=== PATIENT | male | born 1950 | race Caucasian/White ===

== ENCOUNTER → 2021-03-20 10:36 | Outpatient (CLI) | payer MEDICARE, OTHER, SELFPAY ==
[2021-03-20 19:45] LABS: Alanine Aminotransferase 58 IU/L (<50); Albumin 4.5 g/dL (3.5-5.0); Albumin Globulin Ratio 1.4 (1.0-2.8); Alkaline Phosphatase 120 U/L (38-126); Aspartate Aminotransferase 77 IU/L (17-59); BUN Creatinine Ratio 13.8 (6-22); Bilirubin Total 1.1 mg/dL (0.2-1.3); Blood Urea Nitrogen 12 mg/dL (9-20); Calcium 9.7 mg/dL (8.4-10.2); Carbon Dioxide 27 mmol/L (22-32); Chloride 103 mmol/L (98-107); Cholesterol 216 mg/dL (140-199); Estimated Glomerular Filt Rate > 60.0 mL/min (>60); Globulin 3.2 g/dL (1.7-4.1); Glucose 103 mg/dL (80-110); HDL Cholesterol 69 mg/dL (40-60); HEMOLYSIS < 15 (0-50); LDL Cholesterol Calculated 120 mg/dL (<100); Potassium 4.4 mmol/L (3.4-5.1); Sodium 139 mmol/L (137-145); Total Protein 7.7 g/dL (6.3-8.2); Triglycerides 133 mg/dL (35-150)
== END ==
PROVIDERS: Family Provider Family Medicine; PCP Physician Assistant; Visit Provider Physician Assistant
DX: F10.20 Alcohol dependence, uncomplicated (principal); Z12.5 Encounter for screening for malignant neoplasm of prostate; E78.5 Hyperlipidemia, unspecified; I10 Essential (primary) hypertension
CPT/HCPCS: 80053; 80061; G0103

== ENCOUNTER → 2021-07-09 13:47 | Outpatient (CLI) | payer MEDICARE, OTHER, SELFPAY ==
[2021-07-09 19:16] LABS: Add Manual Diff / Slide Review NO; Basophils Absolute Auto 0 /uL (0-100); Basophils Percent Auto 0.6 % (0-2); Eosinophils Absolute Auto 100 /uL (0-450); Eosinophils Percent Auto 0.9 % (2-4); Hematocrit 41.9 % (41-53); Hemoglobin 14.9 g/dL (13.5-17.5); Lymphocytes Absolute Auto 1500 /uL (1100-4500); Lymphocytes Percent Auto 18.9 % (25-40); Mean Corpuscular HGB Conc 35.5 % (30-36); Mean Corpuscular Hemoglobin 34.9 PG (26-34); Mean Corpuscular Volume 98.1 fL (80-100); Monocytes Absolute Auto 1100 /uL (0-900); Monocytes Percent Auto 13.3 % (3-14); Neutrophils Absolute Auto 5300 /uL (1500-7000); Neutrophils Percent Auto 66.3 % (50-75); Platelet Count 239 X10^3/uL (150-400); Red Blood Cell Count 4.27 X10^6/uL (4.5-5.9); Red Cell Distribution Width 12.5 % (11.6-14.8)
[2021-07-09 19:28] LABS: Erythrocyte Sedimentation Rate 46 MM/HR (0-15)
== END ==
PROVIDERS: Family Provider Family Medicine; PCP Physician Assistant; Visit Provider Family Medicine
DX: M25.561 Pain in right knee (principal)
CPT/HCPCS: 85025; 85651

== ENCOUNTER → 2021-08-29 11:38 | Outpatient (CLI) | payer MEDICARE, OTHER, SELFPAY ==
[2021-08-29 18:47] LABS: Alanine Aminotransferase 36 IU/L (<50); Albumin 4.5 g/dL (3.5-5.0); Albumin Globulin Ratio 1.4 (1.0-2.8); Alkaline Phosphatase 115 U/L (38-126); Aspartate Aminotransferase 49 IU/L (17-59); Bilirubin Total 0.8 mg/dL (0.2-1.3); Bilirubin Unconjugated 0.8 mg/dL (0.0-1.1); Globulin 3.3 g/dL (1.7-4.1); HEMOLYSIS < 15 (0-50); Total Protein 7.8 g/dL (6.3-8.2); Uric Acid 7.1 mg/dL (3.5-8.5)
[2021-08-29 18:59] LABS: Erythrocyte Sedimentation Rate 11 MM/HR (0-15)
[2021-08-30 16:54] LABS: Hep C Virus Ab w/Reflex Quant NEGATIVE s/c (NEGATIVE)
== END ==
PROVIDERS: Family Provider Family Medicine; PCP Physician Assistant; Visit Provider Family Medicine
DX: E78.5 Hyperlipidemia, unspecified (principal); F10.20 Alcohol dependence, uncomplicated; I10 Essential (primary) hypertension; K21.00 Gastro-esophageal reflux disease with esophagitis, without bleeding; K58.9 Irritable bowel syndrome, unspecified; M10.9 Gout, unspecified; R74.8 Abnormal levels of other serum enzymes
CPT/HCPCS: 80076; 84550; 85651; 86803

== ENCOUNTER 2022-02-13 08:29 | Emergency (ER) | payer MEDICARE, OTHER, SELFPAY ==
[2022-02-13] VITALS (9 sets, daily range): BP systolic 117–154; BP diastolic 68–94; PULSE 65–82; RESP 18–20; TEMP 36.9; O2SAT 95–98; BMI 19.8
[2022-02-13 09:25] LABS: Alanine Aminotransferase 15 IU/L (<50); Albumin 4.1 g/dL (3.5-5.0); Albumin Globulin Ratio 1.1 (1.0-2.8); Alkaline Phosphatase 69 U/L (38-126); Aspartate Aminotransferase 32 IU/L (17-59); BUN Creatinine Ratio 26.7 (6-22); Bilirubin Total 1.6 mg/dL (0.2-1.3); Blood Urea Nitrogen 20 mg/dL (9-20); Calcium 9.3 mg/dL (8.4-10.2); Carbon Dioxide 32 mmol/L (22-32); Chloride 97 mmol/L (98-107); Estimated Glomerular Filt Rate > 60 mL/min (>60); Globulin 3.9 g/dL (1.7-4.1); Glucose 97 mg/dL (80-110); Lactate (Lactic Acid) 1.4 mmol/L (0.7-2.1); Lipase 82 U/L (23-300); Potassium 4.6 mmol/L (3.4-5.1); Sodium 139 mmol/L (137-145)
[2022-02-13 09:26] LABS: HEMOLYSIS 52 (0-50)
[2022-02-13] MEDS: SODIUM CHLORIDE 0.9% 1,000 ML 1000 ML IV (09:30)
[2022-02-13 09:31] LABS: Add Manual Diff / Slide Review NO; Basophils Absolute Auto 0 /uL (0-100); Basophils Percent Auto 0.6 % (0-2); Eosinophils Absolute Auto 100 /uL (0-450); Eosinophils Percent Auto 0.8 % (2-4); Hematocrit 44.7 % (41-53); Hemoglobin 15.2 g/dL (13.5-17.5); Lymphocytes Absolute Auto 1500 /uL (1100-4500); Lymphocytes Percent Auto 21.4 % (25-40); Mean Corpuscular HGB Conc 34.1 % (30-36); Mean Corpuscular Hemoglobin 32.7 PG (26-34); Mean Corpuscular Volume 95.9 fL (80-100); Monocytes Absolute Auto 700 /uL (0-900); Monocytes Percent Auto 9.3 % (3-14); Neutrophils Absolute Auto 4800 /uL (1500-7000); Neutrophils Percent Auto 67.9 % (50-75); Platelet Count 257 X10^3/uL (150-400); Red Blood Cell Count 4.66 X10^6/uL (4.5-5.9); Red Cell Distribution Width 13.2 % (11.6-14.8); White Blood Cell Count 7.1 X10^3/uL (4.5-11.0)
--- NOTE | 2022-02-13 09:48 | ED_ITS ---
HPI - Weakness General Chief complaint: Upper Respiratory Symptoms Stated complaint: throat pain, difficulty swallowing Time Seen by Provider: 02/13/22 08:50 Source: patient Mode of arrival: Family Vehicle History of Present Illness HPI Narrative: Patient is a 71-year-old male history of hypertension and gout presenting today with some difficulty swallowing and raspy voice. He says it has been ongoing for the last few months worse over the last few weeks. No changes today. He says that he has had significant weight loss. He says it hurts to swallow he can swallow liquids on not food as much but sometimes gets things down. He has had significant weight loss. He denies any chest pain shortness of breath abdominal pain nausea vomiting fever or chills. He says about 10 or 12 years ago he had benign polyps removed from his throat. According to records patient has had these symptoms since 11/14/2021 he has been seen by his PCP including on 01/30/2022 he has been referred to ENT however he has not yet contacted them. Orders for imaging were placed however not yet done. Former smoker has not smoked for 10 years does drink alcohol regularly. Currently denies any withdrawal symptoms not having any tremors. Related Data Previous Rx's Medication Instructions Recorded allopurinol 100 mg tablet See Rx Instructions PO DAILY #28 08/29/21 tabs allopurinol 300 mg tablet See Rx Instructions PO DAILY gout 08/29/21 #90 tabs colchicine 0.6 mg tablet See Rx Instructions PO DAILY #90 08/30/21 tabs metoprolol succinate 50 mg See Rx Instructions .Route 11/15/21 tablet,extended release 24 hr .COMPLEX #45 tabs oxycodone 5 mg tablet 5 mg PO TID PRN pain #30 tabs 01/30/22 Allergies Allergy/AdvReac Type Severity Reaction Status Date / Time No Known Drug Allergies Allergy Verified 11/14/21 15:05 Review of Systems Review of Systems Narrative: GENERAL: Denies chills, fatigue, malaise, fever, sweats, travel HEENT: See HPI RESPIRATORY: Denies dyspnea, cough, wheezing, hemoptysis, sputum. CARDIOVASCULAR: Denies chest pain, palpitations, orthopnea, edema GASTROINTESTINAL: Denies nausea, vomiting, abdominal pain, diarrhea, constipation, melena. : Denies dysuria, frequency, incontinence, hematuria, urinary retention, flank pain. MUSCULOSKELETAL: Denies weakness, joint pain, or bony pain SKIN: No rash, no erythema, no pruritus NEUROLOGIC: Denies weakness, dizziness, headache, numbness, change in speech, confusion PSYCHIATRIC: No concerning psychosocial issues. 12 point review of systems is negative except for those stated above and HPI Patient History Medical History Family history of coronary artery disease in father Screening for colon cancer Screening for prostate cancer Social History Smoking Status: Former smoker Smoking Status: Former smoker tobacco type: cigarettes alcohol intake frequency: 3 or more drinks per day Alcohol type: hard liquor Substance Use Type: does not use Exam Initial Vital Signs Initial Vital Signs: Vital Signs Temperature 98.5 F 02/13/22 08:51 Pulse Rate 82 02/13/22 08:51 Respiratory Rate 18 02/13/22 08:51 Blood Pressure 122/94 H 02/13/22 08:51 Pulse Oximetry 98 02/13/22 08:51 Oxygen Delivery Method 02/13/22 08:51 GENERAL: Alert and 71-year-old male and in no acute distress. HEENT: Head atraumatic,EOMI, pupils reactive, face symmetric, moist mucous membranes PHARYNX: No uvula swelling deviation airway patent CARDIOVASCULAR: Regular rate and rhythm without murmurs, rubs or gallops. RESPIRATORY: Breath sounds equal bilaterally, no wheezes rales or rhonchi. ABDOMEN: Soft, nontender. Normoactive bowel sounds all 4 quadrants. No guardi ng or rebound. EXTREMITIES: Normal range of motion, no clubbing or edema. Neurovascularly intact NEUROLOGICAL: Alert and oriented x4.Normal gait and speech. SKIN: Warm, dry, no laceration, no petechiae, no rashes or lesions. Course Orders Ordered: Discontinued Medications Sodium Chloride (Normal Saline 0.9%) 1,000 mls @ 1,000 mls/hr IV BOLUS ONE Stop: 02/13/22 10:11 Last Infusion: 02/13/22 10:37 Dose: 0 mls/hr Documented By: Admin: 02/13/22 09:30 Dose: 1,000 mls/hr Documented By: MIK Vital Signs Vital signs: Vital Signs - 8 hr 02/13/22 11:30 02/13/22 11:30 02/13/22 12:00 Pulse Rate 65 Respiratory Rate 20 Blood Pressure 135/74 137/76 Pulse Oximetry 98 02/13/22 12:00 Pulse Rate 71 Respiratory Rate Blood Pressure Pulse Oximetry 97 MDM - Weakness Lab Data Result diagrams: 02/13/22 09:07 02/13/22 09:07 Labs: Lab Results 02/13/22 02/13/22 02/13/22 Range/Units 09:07 09:07 09:07 WBC 7.1 (4.5-11.0) X10^3/uL RBC 4.66 (4.5-5.9) X10^6/uL Hgb 15.2 (13.5-17.5) g/dL Hct 44.7 (41-53) % MCV 95.9 (80-100) fL MCH 32.7 (26-34) PG MCHC 34.1 (30-36) % RDW 13.2 (11.6-14.8) % Plt Count 257 (150-400) X10^3/uL Neut % (Auto) 67.9 (50-75) % Lymph % (Auto) 21.4 L (25-40) % [place] % (Auto) 9.3 (3-14) % Eos % (Auto) 0.8 L (2-4) % Baso % (Auto) 0.6 (0-2) % Neut # (Auto) 4800 (0743-6912) /uL Lymph # (Auto) 1500 (1695-0242) /uL [place] # (Auto) 700 (0-900) /uL Eos # (Auto) 100 (0-450) /uL Baso # (Auto) 0 (0-100) /uL Sodium 139 (137-145) mmol/L Potassium 4.6 (3.4-5.1) mmol/L Chloride 97 L (98-107) mmol/L Carbon Dioxide 32 (22-32) mmol/L BUN 20 (9-20) mg/dL Creatinine 0.75 (0.66-1.25) mg/dL Estimated GFR > 60 (>60) mL/min BUN/Creatinine Ratio 26.7 H (6-22) Glucose 97 (80-110) mg/dL Lactate 1.4 (0.7-2.1) mmol/L Calcium 9.3 (8.4-10.2) mg/dL Total Bilirubin 1.6 H (0.2-1.3) mg/dL AST 32 (17-59) IU/L ALT 15 (<50) IU/L Alkaline Phosphatase 69 (38-126) U/L Total Protein 8.0 (6.3-8.2) g/dL Albumin 4.1 (3.5-5.0) g/dL Globulin 3.9 (1.7-4.1) g/dL Albumin/Globulin Ratio 1.1 (1.0-2.8) Lipase 82 (23-300) U/L SARS-CoV-2 (PCR) (Negative) 02/13/22 Range/Units 09:27 WBC (4.5-11.0) X10^3/uL RBC (4.5-5.9) X10^6/uL Hgb (13.5-17.5) g/dL Hct (41-53) % MCV (80-100) fL MCH (26-34) PG MCHC (30-36) % RDW (11.6-14.8) % Plt Count (150-400) X10^3/uL Neut % (Auto) (50-75) % Lymph % (Auto) (25-40) % [place] % (Auto) (3-14) % Eos % (Auto) (2-4) % Baso % (Auto) (0-2) % Neut # (Auto) (8745-5379) /uL Lymph # (Auto) (0572-0212) /uL [place] # (Auto) (0-900) /uL Eos # (Auto) (0-450) /uL Baso # (Auto) (0-100) /uL Sodium (137-145) mmol/L Potassium (3.4-5.1) mmol/L Chloride (98-107) mmol/L Carbon Dioxide (22-32) mmol/L BUN (9-20) mg/dL Creatinine (0.66-1.25) mg/dL Estimated GFR (>60) mL/min BUN/Creatinine Ratio (6-22) Glucose (80-110) mg/dL Lactate (0.7-2.1) mmol/L Calcium (8.4-10.2) mg/dL Total Bilirubin (0.2-1.3) mg/dL AST (17-59) IU/L ALT (<50) IU/L Alkaline Phosphatase (38-126) U/L Total Protein (6.3-8.2) g/dL Albumin (3.5-5.0) g/dL Globulin (1.7-4.1) g/dL Albumin/Globulin Ratio (1.0-2.8) Lipase (23-300) U/L SARS-CoV-2 (PCR) Positive H (Negative) Imaging Data Ct soft tissue : Radiologist Impression: ?Mikel Yeager MR#: [id number] : 1950 Acct:[id number] Age/Sex: 71 / M Date of Service: 02/13/22 Loc: ED Accession Number: [id number] ?? Procedure: CT soft tissue neck w con Ordering Provider: Quynh Min D.O. PROCEDURE:? CT SOFT TISSUE NECK W CON ? INDICATIONS:? can't swallow for weeks difficulty talking ? TECHNIQUE:? After the administration of intravenous contrast, 3.0 mm axial sections acquired from the sella to the aortic arch.? 3 mm thick coronal and sagittal reformats were generated.? For radiation dose reduction, the following was used:? automated exposure control.? ? COMPARISON:? None. ? FINDINGS: ? Skull Base: The visualized intracranial contents, skull, and orbits are unremarkable.? Visualized paranasal sinuses are clear. ? Pharynx and Larynx:? There is irregular thickening and mass effect associated with the right aryepiglottic fold measuring and 2.4 x 1.1 x 4.1 cm overall.? Mass follows the mucosal surface predominantly along the anterior laryngeal surface inferiorly to at least the false cords.? Airway remains patent but narrowed. ? Muscles and Fascial Planes:? Fascial planes are well maintained.? No abscess or mass lesion. ? Lymph Nodes:? Prominent but nonenlarged level IIa node on the left measures 7 mm in short axis.? Additional scattered bilateral nonenlarged nodes noted in both deep cervical and submental chains ? Vasculature:? Unremarkable. ? Submandibular and Parotid Glands:? Normal in size and attenuation. ? Thyroid:? Unremarkable.? No enlarged or calcified nodules. ? Bones:? No acute fracture.? No osteolytic or blastic lesion is evident. Normal bone mineralization.? Degenerative disc disease and arthropathy in cervical spine results in moderate central stenosis C4-5 C5-6. ? Lung Apices:? Moderate pulmonary emphysema ? IMPRESSION: ? 1. Laryngeal mass lesion centered in the right aryepiglottic fold extending inferiorly most consistent with squamous cell carcinoma.? Recommend ENT consult and direct visualization.? ? 2. Moderate pulmonary emphysema and cervical degenerative disc disease ? Approved by: Randal Auguste M.D. on 02/13/2022 at 9:52? ct chest/ab pelvis: Radiologist Impression: CT Scan Report Signed Patient: Mikel Yeager MR#: [id number] : 1950 Acct:[id number] Age/Sex: 71 / M Date of Service: 02/13/22 Loc: ED Accession Number: [id number] ?? Procedure: CT chest abd pel w con Ordering Provider: Quynh Min D.O. PROCEDURE:? CT CHEST ABD PEL W CON ? INDICATIONS:? Dyspnea, abdominal pain, cancer screening ? TECHNIQUE:? After the administration of intravenous contrast, 5 mm thick sections acquired from the lung apices to the symphysis.? 2.5 mm thick coronal and sagittal reformats were acquired. ?Additional 7 mm thick coronal maximum intensity projection (MIP) reformats acquired through the lungs.? For radiation dose reduction, the following was used:? automated exposure control, adjustment of mA and/or kV according to patient size.? ? COMPARISON:? None. ? FINDINGS: ? Chest: ? Cardiovascular:? Heart size is normal.? No evidence of pulmonary embolism, aortic aneurysm or dissection. ? Lungs and pleural spaces:? Moderate pulmonary emphysema with apical predominance.? No focal infiltrate, nodule or pleural effusion ? Lymph nodes:? No mediastinal, hilar or axillary adenopathy. ? Mediastinum:? Unremarkable.? No hiatal hernia.? Thyroid within normal limits. ? Chest Wall and Bones:? Unremarkable.? No acute fracture. ? Abdomen and Pelvis: ? Liver:? Normal in size and attenuation. No contour deformity present. Biliary system:? No calcified cholelithiasis or pericholecystic inflammation.? No intra or extrahepatic bile duct dilatation. ? Pancreas:? Unremarkable without mass or inflammation evident. ? Spleen:? Normal in size and density. ? Adrenals:? Normal morphology and density. ? Reproductive system:? Unremarkable as visualized. ? Urinary system:? 2.6 cm simple right renal cyst.? Both kidneys otherwise unremarkable without hydronephrosis or calculus. ? Gastrointestinal system:? The bowel is unremarkable with no evidence of bowel obstruction or inflammation. The stomach appears unremarkable.? ? Appendix:? No findings to suggest acute appendicitis. ? Lymph nodes:? No mesenteric or retroperitoneal adenopathy. ? Peritoneal spaces: ? No free air. No free fluid.? ? Vasculature:? Aortic atherosclerotic vascular calcification noted without evidence of aneurysm. ? Abdominal wall:? Abdominal wall intact without evidence of ventral or inguinal hernias. ? Musculoskeletal:? Normal bone mineralization.? Degenerative disc disease and arthropathy noted in lower lumbar spine.? No acute fractures.? ? IMPRESSION: ? 1.? Moderate pulmonary emphysema.? No mass lesion in the chest, abdomen and pelvis. ? 2. Chronic changes include right renal cyst and degenerative disc disease ? Approved by: Randal Auguste M.D. on 02/13/2022 at 9:41? MDM Narrative Medical decision making narrative: The patient is found to have a new laryngeal mass, likely cancer. It is not causing any airway obstruction. I have called and spoken with Dr. Wiggins ENT he has an appointment tomorrow at 10:45 a.m. for evaluation. I have also called and notified his PCP office regards to urgent referral to Oncology. This time patient agrees to go to his appointment with ENT tomorrow and will follow-up closely Discharge Plan Departure Patient Disposition: Home Clinical Impression: Laryngeal cancer Instructions: Laryngeal Cancer Activity Restrictions/Additional Instructions: *You have been diagnosed with laryngeal cancer *What to do: You do have a mass causing her raspy voice and difficulty swallowing and weight loss. This will need to be addressed as soon as possible. Who have been appointment with ENT tomorrow I have also called Oncology but more will need to be done. I also contacted your PCP Continue to increase fluids, protein shakes, Boost or Ensure *Continue to take medications as directed *Follow up with your primary care provider in 2-3 days or call [phone] Dr. Gregg Wiggins, tomorrow February 14 at 10:45 a.m. *Return to ER if you should have difficulty swallowing or breathing or any new, worsening or concerning symptoms Prescriptions: No Action colchicine 0.6 mg tablet See Rx Instructions PO DAILY Qty: 90 1RF Rx Instructions: Take 1 daily for 3 months to prevent gout break while starting allopurinol metoprolol succinate 50 mg tablet extended release 24 hr See Rx Instructions .ROUTE .COMPLEX Qty: 45 5RF Dose Instruction: TAKE ONE AND ONE-HALF TABLETS BY MOUTH EVERY DAY Rx Instructions: TAKE ONE AND ONE-HALF TABLETS BY MOUTH EVERY DAY allopurinol 100 mg tablet See Rx Instructions PO DAILY Qty: 28 0RF Rx Instructions: Take one daily for 2 weeks, then take two daily for a week and then convert to the 300 mg tab allopurinol 300 mg tablet See Rx Instructions PO DAILY Qty: 90 3RF Rx Instructions: Take one daily starting at week number 4 oxycodone 5 mg tablet 5 mg PO TID PRN (Reason: pain) Qty: 30 0RF Referrals: Janae Suazo PA-C [Primary Care Provider] - Gregg Wiggins MD [Physician] - Visit Report Forms: Patient Portal/API
--- NOTE | 2022-02-13 09:48 | DI.CT.S_ITS ---
PROCEDURE: CT SOFT TISSUE NECK W CON INDICATIONS: can't swallow for weeks difficulty talking TECHNIQUE: After the administration of intravenous contrast, 3.0 mm axial sections acquired from the sella to the aortic arch. 3 mm thick coronal and sagittal reformats were generated. For radiation dose reduction, the following was used: automated exposure control. COMPARISON: None. FINDINGS: Skull Base: The visualized intracranial contents, skull, and orbits are unremarkable. Visualized paranasal sinuses are clear. Pharynx and Larynx: There is irregular thickening and mass effect associated with the right aryepiglottic fold measuring and 2.4 x 1.1 x 4.1 cm overall. Mass follows the mucosal surface predominantly along the anterior laryngeal surface inferiorly to at least the false cords. Airway remains patent but narrowed. Muscles and Fascial Planes: Fascial planes are well maintained. No abscess or mass lesion. Lymph Nodes: Prominent but nonenlarged level IIa node on the left measures 7 mm in short axis. Additional scattered bilateral nonenlarged nodes noted in both deep cervical and submental chains Vasculature: Unremarkable. Submandibular and Parotid Glands: Normal in size and attenuation. Thyroid: Unremarkable. No enlarged or calcified nodules. Bones: No acute fracture. No osteolytic or blastic lesion is evident. Normal bone mineralization. Degenerative disc disease and arthropathy in cervical spine results in moderate central stenosis C4-5 C5-6. Lung Apices: Moderate pulmonary emphysema IMPRESSION: 1. Laryngeal mass lesion centered in the right aryepiglottic fold extending inferiorly most consistent with squamous cell carcinoma. Recommend ENT consult and direct visualization. 2. Moderate pulmonary emphysema and cervical degenerative disc disease Approved by: Randal Auguste M.D. on 02/13/2022 at 9:52
--- NOTE | 2022-02-13 09:48 | DI.CT.S_ITS ---
PROCEDURE: CT CHEST ABD PEL W CON INDICATIONS: Dyspnea, abdominal pain, cancer screening TECHNIQUE: After the administration of intravenous contrast, 5 mm thick sections acquired from the lung apices to the symphysis. 2.5 mm thick coronal and sagittal reformats were acquired. Additional 7 mm thick coronal maximum intensity projection (MIP) reformats acquired through the lungs. For radiation dose reduction, the following was used: automated exposure control, adjustment of mA and/or kV according to patient size. COMPARISON: None. FINDINGS: Chest: Cardiovascular: Heart size is normal. No evidence of pulmonary embolism, aortic aneurysm or dissection. Lungs and pleural spaces: Moderate pulmonary emphysema with apical predominance. No focal infiltrate, nodule or pleural effusion Lymph nodes: No mediastinal, hilar or axillary adenopathy. Mediastinum: Unremarkable. No hiatal hernia. Thyroid within normal limits. Chest Wall and Bones: Unremarkable. No acute fracture. Abdomen and Pelvis: Liver: Normal in size and attenuation. No contour deformity present. Biliary system: No calcified cholelithiasis or pericholecystic inflammation. No intra or extrahepatic bile duct dilatation. Pancreas: Unremarkable without mass or inflammation evident. Spleen: Normal in size and density. Adrenals: Normal morphology and density. Reproductive system: Unremarkable as visualized. Urinary system: 2.6 cm simple right renal cyst. Both kidneys otherwise unremarkable without hydronephrosis or calculus. Gastrointestinal system: The bowel is unremarkable with no evidence of bowel obstruction or inflammation. The stomach appears unremarkable. Appendix: No findings to suggest acute appendicitis. Lymph nodes: No mesenteric or retroperitoneal adenopathy. Peritoneal spaces: No free air. No free fluid. Vasculature: Aortic atherosclerotic vascular calcification noted without evidence of aneurysm. Abdominal wall: Abdominal wall intact without evidence of ventral or inguinal hernias. Musculoskeletal: Normal bone mineralization. Degenerative disc disease and arthropathy noted in lower lumbar spine. No acute fractures. IMPRESSION: 1. Moderate pulmonary emphysema. No mass lesion in the chest, abdomen and pelvis. 2. Chronic changes include right renal cyst and degenerative disc disease Approved by: Randal Auguste M.D. on 02/13/2022 at 9:41
[2022-02-13 10:33] LABS: COVID19 -Nasal RAPID POSITIVE (Negative)
== END 2022-02-13 12:18 | disposition home or self-care (01) ==
PROVIDERS: Emergency Provider Emergency Medicine; Family Provider Family Medicine; PCP Physician Assistant
DX: C32.9 Malignant neoplasm of larynx, unspecified (principal); R06.00 Dyspnea, unspecified; R10.9 Unspecified abdominal pain; Z20.822 Contact with and (suspected) exposure to COVID-19; R13.10 Dysphagia, unspecified
CPT/HCPCS: 36415; 70491; 71260; 74177; 80053; 83605; 83690; 85025; 87635; 99284; C9803; Q9967

== ENCOUNTER → 2022-02-26 08:21 | Outpatient (CLI) | payer MEDICARE, OTHER, SELFPAY ==
[2022-02-26 20:41] LABS: COVID19 - ORCAS (NP or Nasal) Negative (Negative)
== END ==
PROVIDERS: Family Provider Family Medicine; PCP Physician Assistant; Visit Provider Physician Assistant
DX: Z01.812 Encounter for preprocedural laboratory examination (principal); Z20.822 Contact with and (suspected) exposure to COVID-19
CPT/HCPCS: C9803; U0003

== ENCOUNTER 2022-04-15 13:55 | Inpatient (IN) | payer MEDICARE, OTHER, SELFPAY ==
[2022-04-15] VITALS (7 sets, daily range): BP systolic 105–127; BP diastolic 55–64; PULSE 49–51; RESP 16; TEMP 36.5; O2SAT 96–100; BMI 21.7
--- NOTE | 2022-04-15 18:27 | ED.RECABL ---
HPI - Recheck/Abnormal Lab/Rx General Chief Complaint: Recheck/Abnormal Lab/Rx Stated Complaint: feeding tube fell out. sent by [facility] Time Seen by Provider: 04/15/22 17:58 Source: patient Mode of arrival: Ambulatory Limitations: no limitations History of Present Illness HPI narrative: Patient is a 71-year-old male. Has a laryngeal carcinoma. Had a trach and G-tube placed approximately 3 weeks ago at [facility]. He lives on [address]. His G-tube came out this morning at 0800 hours. Was sent to the emergency department to have this replaced by the clinic on workup. He is no other complaints except for the G-tube dislodgement. Related Data Home Medications Medication Instructions Recorded Confirmed metoprolol succinate 50 mg 75 mg PO DAILY 04/15/22 tablet,extended release 24 hr Previous Rx's Medication Instructions Recorded allopurinol 100 mg tablet See Rx Instructions PO DAILY #28 08/29/21 tabs allopurinol 300 mg tablet See Rx Instructions PO DAILY gout 08/29/21 #90 tabs colchicine 0.6 mg tablet See Rx Instructions PO DAILY #90 08/30/21 tabs oxycodone 5 mg tablet 5 mg PO TID PRN pain #30 tabs 01/30/22 Allergies Allergy/AdvReac Type Severity Reaction Status Date / Time No Known Drug Allergies Allergy Verified 04/15/22 14:01 Review of Systems ENT Ears, Nose, Mouth, and Throat: Reports system reviewed and no additional complaints, except as documented Gastrointestinal Gastrointestinal: Reports system reviewed and no additional complaints, except as documented Integumentary/Breasts Skin/Breast: Reports system reviewed and no additional complaints, except as documented Patient History Medical History Family history of coronary artery disease in father Screening for colon cancer Screening for prostate cancer Social History Smoking Status: Former smoker Smoking Status: Former smoker tobacco type: cigarettes alcohol intake frequency: 3 or more drinks per day Alcohol type: hard liquor Substance Use Type: does not use Exam Initial Vital Signs Initial Vital Signs: Vital Signs Temperature 97.7 F 04/15/22 14:01 Pulse Rate 49 L 04/15/22 14:01 Respiratory Rate 16 04/15/22 14:01 Blood Pressure 127/58 L 04/15/22 14:01 Pulse Oximetry 100 04/15/22 14:01 Oxygen Delivery Method 04/15/22 14:01 Const General: cooperative and comfortable Neck Other: Trach in place anterior neck. GI Other: G-tube ostomy located left upper abdomen. No bleeding. Skin General: no rashes or lesions noted Neuro General: patient alert, patient awake and moves all extremities Course Orders Ordered: ED Orders 04/15/22 18:29 Consult to General Surgery Stat 04/15/22 19:25 Basic Metabolic Panel Stat Complete Blood Count AUTO DIFF Stat Enoxaparin Sodium (Enoxaparin 30 Mg/0.3 Ml Syringe) 30 mg SUBCUT DAILY ALAN Sodium Chloride (Normal Saline 0.9%) 1,000 mls @ 125 mls/hr IV CONT ALAN Last Admin: 04/15/22 19:39 Dose: Not Given Documented By: AXEL Dextrose/Sodium Chloride (Dextrose 5%-0.9% Ns) 1,000 mls @ 100 mls/hr IV CONT ALAN Last Admin: 04/15/22 19:39 Dose: 100 mls/hr Documented By: AXEL Naloxone HCl (Naloxone 0.4 Mg/Ml Vial) 0.2 mg IV Q2MIN PRN PRN Reason: Opiate Reversal Vital Signs Vital signs: Vital Signs - 8 hr 04/15/22 14:01 04/15/22 16:33 Temperature 97.7 F Pulse Rate 49 L 50 L Respiratory Rate 16 16 Blood Pressure 127/58 L 123/59 L Pulse Oximetry 100 97 Oxygen Delivery Method Room Air Room Air MDM - Recheck/Abnormal Lab/Rx Lab Data Attestation: I reviewed the patient's lab results. Result diagrams: 04/15/22 19:25 04/15/22 19:25 [facility] Narrative Medical decision making narrative: Patient's G-tube was dislodged approximately 11 hours ago. He did do a feeding this morning through the to. He is taking nothing by mouth. The G-tube his only 3-week-old. Discussed the case with Dr. Serra. Given the fact that it has not matured the patient does require admission to the hospital to have this replaced. I discussed this with the patient and family. Will admit for further evaluation to General surgery. Discharge Plan Departure Patient Disposition: Admitted as Observation Clinical Impression: Gastrojejunostomy tube dislodgement, Laryngeal cancer Admit Date/Time: 04/15/22 18:38 Admit Provider: Rukhsana Serra
[2022-04-15] MEDS: DEXTROSE 5%-0.9% NS 1,000 ML 100 ML IV (19:39)
[2022-04-15 19:47] LABS: BUN Creatinine Ratio 36.4 (6-22); Blood Urea Nitrogen 20 mg/dL (9-20); Calcium 9.3 mg/dL (8.4-10.2); Carbon Dioxide 28 mmol/L (22-32); Chloride 101 mmol/L (98-107); Estimated Glomerular Filt Rate > 60 mL/min (>60); Glucose 90 mg/dL (80-110); HEMOLYSIS < 15 (0-50); Potassium 4.3 mmol/L (3.4-5.1); Sodium 138 mmol/L (137-145)
[2022-04-15 19:48] LABS: COVID19 -Nasal RAPID Negative (Negative)
[2022-04-15 20:10] LABS: Add Manual Diff / Slide Review NO; Basophils Absolute Auto 0 /uL (0-100); Basophils Percent Auto 0.5 % (0-2); Eosinophils Absolute Auto 100 /uL (0-450); Eosinophils Percent Auto 1.4 % (2-4); Hematocrit 37.8 % (41-53); Hemoglobin 12.7 g/dL (13.5-17.5); Lymphocytes Absolute Auto 1200 /uL (1100-4500); Lymphocytes Percent Auto 21.4 % (25-40); Mean Corpuscular HGB Conc 33.5 % (30-36); Mean Corpuscular Hemoglobin 33.8 PG (26-34); Mean Corpuscular Volume 101.1 fL (80-100); Monocytes Absolute Auto 600 /uL (0-900); Monocytes Percent Auto 10.1 % (3-14); Neutrophils Absolute Auto 3700 /uL (1500-7000); Neutrophils Percent Auto 66.6 % (50-75); Platelet Count 237 X10^3/uL (150-400); Red Blood Cell Count 3.74 X10^6/uL (4.5-5.9); Red Cell Distribution Width 14.8 % (11.6-14.8); White Blood Cell Count 5.6 X10^3/uL (4.5-11.0)
[2022-04-16] VITALS (12 sets, daily range): BP systolic 92–139; BP diastolic 42–80; PULSE 45–75; RESP 12–22; TEMP 36.6–37.1; O2SAT 93–100; BMI 21.7
[2022-04-16] MEDS: DEXTROSE 5%-0.9% NS 1,000 ML 100 ML IV (05:59)
--- NOTE | 2022-04-16 10:09 | SUR.OPER ---
Supine on padded OR bed, head on pillow, arms secured on padded arm boards at <90 degrees abduction, legs uncrossed, safety belt at thigh, tape over blanket over lower legs.
--- NOTE | 2022-04-16 10:23 | P.HP_ITS ---
History of Present Illness History of Present Illness Date Patient Seen: 04/16/22 Time Patient Seen: 10:23 Chief complaint: feeding tube fell out. 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 Last PEG only 3 wks old. No issues with the PEG prior. Patient History Medical History Family history of coronary artery disease in father Screening for colon cancer Screening for prostate cancer Comment: S/p Peg and trach 3 weeks ago for laryngeal cancer Family & Social History Safety & Behavioral: Feels Safe in Current Yes Environment Tobacco & Substance use: Smoking Status Former smoker alcohol intake frequency 3 or more drinks per day Substance Use Type does not use Meds Home Medications and Allergies Home Medications Medication Instructions Recorded Confirmed Type allopurinol 100 mg tablet See Rx Instructions PO DAILY #28 08/29/21 11/14/21 Rx tabs allopurinol 300 mg tablet See Rx Instructions PO DAILY gout 08/29/21 11/14/21 Rx #90 tabs colchicine 0.6 mg tablet See Rx Instructions PO DAILY #90 08/30/21 11/14/21 Rx tabs oxycodone 5 mg tablet 5 mg PO TID PRN pain #30 tabs 01/30/22 01/30/22 Rx metoprolol succinate 50 mg 75 mg PO DAILY 04/15/22 History tablet,extended release 24 hr Allergies Allergy/AdvReac Type Severity Reaction Status Date / Time No Known Drug Allergies Allergy Verified 04/15/22 14:01 Review of Systems Review of Systems ROS: Yes All systems reviewed with the patient and are negative except as otherwise documented Exam Vital Signs (past 8 hours): - 04/16/22 06:28 04/16/22 06:24 04/16/22 09:12 Pulse Rate 48 L 45 L 54 L Respiratory Rate 16 Blood Pressure 130/80 Pulse Oximetry 97 96 Oxygen Delivery Method Room Air 04/16/22 09:13 04/16/22 09:13 Pulse Rate 52 L Respiratory Rate Blood Pressure 133/67 Pulse Oximetry 95 Oxygen Delivery Method Oxygen Delivery Method Room Air Const General: cooperative, comfortable and frail appearing Nutritional Appearance: cachectic HENMT Head: normocephalic and atraumatic Other: trach in place s/p Laryngectomy. Eyes Periorbital: periorbital findings normal Eyelids: eyelids normal Neck Neck: trachea midline Chest Chest: normal inspection of the chest Resp Effort & Inspection: normal respiratory effort Other: unable to speak due to Laryngectomy Cardio Rate: regular rate Rhythm: regular rhythm GI Inspection: normal to inspection Palpation: soft Other: Old PEG site not draining Skin General: atrophy Neuro General: patient alert, patient awake and patient oriented x3 Extrem General: normal to inspection and full ROM Psych Appearance: grossly normal Mental Status: mental status grossly normal Judgment: judgment good Objective Labs Result Diagrams: 04/15/22 19:25 04/15/22 19:25 Labs: Laboratory Results - last 24 hr 04/15/22 04/15/22 04/15/22 19:25 19:25 19:30 WBC 5.6 RBC 3.74 L Hgb 12.7 L Hct 37.8 L MCV 101.1 H MCH 33.8 MCHC 33.5 RDW 14.8 Plt Count 237 Neut % (Auto) 66.6 Lymph % (Auto) 21.4 L [place] % (Auto) 10.1 Eos % (Auto) 1.4 L Baso % (Auto) 0.5 Neut # (Auto) 3700 Lymph # (Auto) 1200 [place] # (Auto) 600 Eos # (Auto) 100 Baso # (Auto) 0 Sodium 138 Potassium 4.3 Chloride 101 Carbon Dioxide 28 BUN 20 Creatinine 0.55 L Estimated GFR > 60 BUN/Creatinine Ratio 36.4 H Glucose 90 Calcium 9.3 SARS-CoV-2 (PCR) Negative Assessment & Plan Assessment & Plan narrative: Dislodged PEG. Plan: replace PEG COVID-19 COVID-19 status: Negative Time Spent With Patient Time with patient: less than 30 minutes Critical Care time: I spent a total of [] minutes of critical care time on this patient's care today; this time is exclusive of procedural time.
--- NOTE | 2022-04-16 10:47 | SUR.HOLD ---
Patient to pre-op holding area in stable condition from the ER with plans for peg tube placement; VSS; denies pain or nausea; Patient here since last p.m. from [facility]. Patient has no ride back to the [facility] and lives alone. Patient has a friend, Crow Hector, for contact info, at [phone]. This nurse spoke with Crow Hector after receiving permission from patient regarding care. Per Norm, patient lives alone and has no cell phone. Crow Hector will pick patient up from [facility] this afternoon and will get him home safely. [facility] after procedure.
[2022-04-16] MEDS: LACTATED RINGERS 1,000 ML 42 ML IV (11:10)
--- NOTE | 2022-04-16 11:36 | PM.OP.1 ---
Operative Date/Time/Diagnoses Date of procedure: 04/16/22 Time of procedure: 11:36 Pre-op diagnosis: Dislodged PEG tube, laryngeal cancer Post-op diagnosis: same Procedure & Clinicians Procedure: PEG tube placement Same procedure as scheduled: Yes Indications: PEG tube dependent Surgeon: Rukhsana Serra Anesthesia Type: MAC +/- Operative Notes Findings: Normal anatomy. Closure Type: not applicable Specimen(s): none sent Estimated Blood Loss (mL): 2 Blood products transfused: none Procedure in detail: Preop diagnosis: Peg tube dislodgement Postop diagnosis: Same Operative procedure: Peg tube placement Surgeon: Shona Serra MD Anesthetic: Mac with local Findings: Normal appearing anatomy. He does have some secretions in the esophagus that are thick Procedure: Patient placed in the supine position. Prepped and draped sterile fashion to expose his abdomen. Local was injected in the previous PEG tube site. And the procedure was carried out through the previous PEG tube site. Needle was placed through the abdominal wall feeding a wire into the stomach which was grasped by the endoscopy scope and pulled through the oral cavity. Then reverse pulling the PEG tube through the oral cavity in the esophagus seating it up to the abdominal wall all carried out through the Angiocath entry site. The PEG tube itself was matured, sterile dressings were placed. Patient was awakened, taken to recovery room in stable condition. Needle, instrument, sponge counts were correct. Specimen: None Blood loss: 2 ml Complications: none Post-operative Condition: stable Disposition: PACU
== END 2022-04-16 12:54 | disposition home or self-care (01) | DRG 395 ==
LOC: ED 18:30 → AC 18:41
PROVIDERS: Admitting Provider Surgery; Emergency Provider Emergency Medicine; Family Provider Family Medicine; PCP Physician Assistant; Referring Provider Emergency Medicine; Visit Provider Surgery
PROC: 0DH63UZ Insertion of Feeding Device into Stomach, Percutaneous Approach (ICD-10-PCS; CPT 43246; principal; 2022-04-16 10:30)
DX: K94.23 Gastrostomy malfunction (principal); Z20.822 Contact with and (suspected) exposure to COVID-19; Z87.891 Personal history of nicotine dependence
CPT/HCPCS: 36415; 43246; 80048; 85025; 87635; 99221; 99283; C9803; J2250; J2405; J2704; J3010

== ENCOUNTER → 2022-10-31 13:03 | Outpatient (CLI) | payer MEDICARE, OTHER, SELFPAY ==
[2022-10-31 20:09] LABS: HEMOLYSIS < 15 (0-50); Iron 137 ug/dL (49-181)
[2022-10-31 20:18] LABS: Reticulocyte Count, Percent 0.5 % (0.9-2.6)
[2022-10-31 20:19] LABS: Percent Iron Saturation 45 % (20-50); Total Iron Binding Capacity 304 ug/dL (261-462); Transferrin 218 mg/dL (206-381)
[2022-10-31 20:20] LABS: Add Manual Diff / Slide Review NO; Basophils Absolute Auto 0 /uL (0-100); Basophils Percent Auto 0.8 % (0-2); Eosinophils Absolute Auto 200 /uL (0-450); Eosinophils Percent Auto 3.5 % (2-4); Hematocrit 36.8 % (41-53); Hemoglobin 12.7 g/dL (13.5-17.5); Lymphocytes Absolute Auto 600 /uL (1100-4500); Lymphocytes Percent Auto 10.4 % (25-40); Mean Corpuscular HGB Conc 34.5 % (30-36); Mean Corpuscular Hemoglobin 35.7 PG (26-34); Mean Corpuscular Volume 103.6 fL (80-100); Monocytes Absolute Auto 600 /uL (0-900); Monocytes Percent Auto 11.3 % (3-14); Neutrophils Absolute Auto 4000 /uL (1500-7000); Platelet Count 197 X10^3/uL (150-400); Red Blood Cell Count 3.55 X10^6/uL (4.5-5.9); Red Cell Distribution Width 12.6 % (11.6-14.8); White Blood Cell Count 5.5 X10^3/uL (4.5-11.0)
[2022-10-31 20:21] LABS: Alanine Aminotransferase 23 IU/L (<50); Albumin 3.9 g/dL (3.5-5.0); Albumin Globulin Ratio 1.2 (1.0-2.8); Alkaline Phosphatase 127 U/L (38-126); Aspartate Aminotransferase 55 IU/L (17-59); BUN Creatinine Ratio 20.2 (6-22); Bilirubin Total 0.7 mg/dL (0.2-1.3); Blood Urea Nitrogen 21 mg/dL (9-20); Calcium 8.8 mg/dL (8.4-10.2); Carbon Dioxide 30 mmol/L (22-32); Chloride 103 mmol/L (98-107); Cholesterol 160 mg/dL (140-199); Estimated Glomerular Filt Rate > 60 mL/min (>60); Globulin 3.3 g/dL (1.7-4.1); Glucose 94 mg/dL (80-110); HDL Cholesterol 69 mg/dL (40-60); HEMOLYSIS < 15 (0-50); LDL Cholesterol Calculated 68 mg/dL (<100); Potassium 4.1 mmol/L (3.4-5.1); Sodium 140 mmol/L (137-145); Total Protein 7.2 g/dL (6.3-8.2); Triglycerides 116 mg/dL (35-150); Uric Acid 2.5 mg/dL (3.5-8.5)
[2022-10-31 21:59] LABS: TSH w/ Reflex to FT4 3.94 uIU/mL (0.47-4.68)
[2022-10-31 22:16] LABS: Vitamin B12 285 pg/mL (239-931)
== END ==
PROVIDERS: Family Provider Family Medicine; PCP Physician Assistant; Visit Provider Family Medicine
DX: E78.5 Hyperlipidemia, unspecified (principal); C32.9 Malignant neoplasm of larynx, unspecified; D64.9 Anemia, unspecified; F10.20 Alcohol dependence, uncomplicated; I10 Essential (primary) hypertension; K58.9 Irritable bowel syndrome, unspecified; R74.8 Abnormal levels of other serum enzymes; M10.9 Gout, unspecified
CPT/HCPCS: 80053; 80061; 82607; 83540; 83550; 84443; 84550; 85025; 85045

== ENCOUNTER → 2024-03-18 08:58 | Outpatient (CLI) | payer MEDICARE, OTHER, SELFPAY ==
[2024-03-18 18:49] LABS: Reticulocyte Count, Percent 0.5 % (0.9-2.6)
[2024-03-18 18:57] LABS: Add Manual Diff / Slide Review NO; Basophils Absolute Auto 100 /uL (0-100); Basophils Percent Auto 0.6 % (0-2); Eosinophils Absolute Auto 100 /uL (0-450); Eosinophils Percent Auto 0.7 % (2-4); Hematocrit 41.5 % (41-53); Hemoglobin 14.1 g/dL (13.5-17.5); Lymphocytes Absolute Auto 800 /uL (1100-4500); Lymphocytes Percent Auto 7.5 % (25-40); Mean Corpuscular HGB Conc 33.9 % (30-36); Mean Corpuscular Hemoglobin 35.1 PG (26-34); Mean Corpuscular Volume 103.5 fL (80-100); Monocytes Absolute Auto 800 /uL (0-900); Monocytes Percent Auto 7.7 % (3-14); Neutrophils Absolute Auto 9200 /uL (1500-7000); Neutrophils Percent Auto 83.5 % (50-75); Platelet Count 237 X10^3/uL (150-400); Red Blood Cell Count 4.01 X10^6/uL (4.5-5.9); Red Cell Distribution Width 12.7 % (11.6-14.8)
[2024-03-18 19:08] LABS: HEMOLYSIS < 15 (0-50); Iron 65 ug/dL (49-181)
[2024-03-18 19:12] LABS: Alanine Aminotransferase 28 IU/L (<50); Albumin 4.3 g/dL (3.5-5.0); Albumin Globulin Ratio 1.4 (1.0-2.8); Alkaline Phosphatase 105 U/L (38-126); Aspartate Aminotransferase 51 IU/L (17-59); BUN Creatinine Ratio 16.3 (6-22); Bilirubin Total 1.4 mg/dL (0.2-1.3); Blood Urea Nitrogen 20 mg/dL (9-20); Calcium 9.5 mg/dL (8.4-10.2); Carbon Dioxide 28 mmol/L (22-32); Chloride 105 mmol/L (98-107); Cholesterol 176 mg/dL (140-199); Estimated Glomerular Filt Rate > 60 mL/min (>60); Globulin 3.1 g/dL (1.7-4.1); Glucose 92 mg/dL (80-110); HDL Cholesterol 109 mg/dL (40-60); HEMOLYSIS < 15 (0-50); LDL Cholesterol Calculated 52 mg/dL (<100); Potassium 4.2 mmol/L (3.4-5.1); Sodium 139 mmol/L (137-145); Total Protein 7.4 g/dL (6.3-8.2); Triglycerides 75 mg/dL (35-150)
[2024-03-18 19:30] LABS: Percent Iron Saturation 26 % (20-50); Total Iron Binding Capacity 250 ug/dL (261-462); Transferrin 229 mg/dL (206-381)
[2024-03-18 19:40] LABS: TSH w/ Reflex to FT4 0.24 uIU/mL (0.47-4.68)
== END ==
PROVIDERS: Family Provider Family Medicine; PCP Family Medicine; Visit Provider Family Medicine
DX: E03.9 Hypothyroidism, unspecified (principal); D64.9 Anemia, unspecified; M1A.0710 Idiopathic chronic gout, right ankle and foot, without tophus (tophi); R74.8 Abnormal levels of other serum enzymes; E78.5 Hyperlipidemia, unspecified; I10 Essential (primary) hypertension; F10.20 Alcohol dependence, uncomplicated
CPT/HCPCS: 80053; 80061; 83540; 83550; 84439; 84443; 85025; 85045